=== PATIENT | male | born 1995 | race Caucasian/White ===

== ENCOUNTER 2016-06-05 12:33 | Emergency (ER) | payer SELFPAY ==
[2016-06-05 12:39] VITALS: BP 122/70
--- NOTE | 2016-06-05 14:42 | Emergency Department Report ---
HPI - General Chief Complaint: Back Pain/Injury Time Seen by Provider: 06/05/16 14:16 - HPI HPI: Patient is a 21-year-old male who presents complaining of right sided lower back pain that started yesterday. Patient describes pain as throbbing and aching in nature and is located to me to right side. Patient states she took a diclofenac. Yesterday which helped give some minor relief but this morning the pain started. Patient states sudden movement aggravates the pain. She denies any trauma or fall to the back. Patient denies fever/chills/nausea/vomiting/dysuria/testicular scrotal pain/ radiating pain down leg/ ED Past Medical Hx - Social History Smoking Status: Never Smoker Substance Use Type: None - Medications Home Medications: Home Medications Medication Instructions Recorded Confirmed Last Taken Type Ondansetron [Zofran Odt] 4 mg PO Q4H PRN #5 tab.rapdis 11/01/15 Unknown Rx Cyclobenzaprine [Flexeril] 10 mg PO QHS #30 tablet 06/05/16 Unknown Rx Ibuprofen [Motrin] 800 mg PO Q8HR PRN #30 tablet 06/05/16 Unknown Rx ED Review of Systems ROS: Stated complaint: BACK PAIN Other details as noted in HPI Constitutional: denies: chills, fever Eyes: denies: eye pain, eye discharge, vision change ENT: denies: ear pain, throat pain Respiratory: denies: cough, shortness of breath, wheezing Cardiovascular: denies: chest pain, palpitations Endocrine: no symptoms reported Gastrointestinal: denies: abdominal pain, nausea, vomiting, diarrhea, constipation, hematochezia Genitourinary: denies: urgency, dysuria, frequency, hematuria, discharge, testicular pain, testicular mass Musculoskeletal: myalgia. denies: back pain, joint swelling, arthralgia Skin: denies: rash, lesions Neurological: denies: headache, weakness, numbness, paresthesias, confusion, abnormal gait Psychiatric: denies: anxiety, depression Hematological/Lymphatic: denies: easy bleeding, easy bruising Physical Exam - Physical Exam Vital Signs: Vital Signs 06/05/16 12:36 Temperature 98.2 F Pulse Rate 62 Respiratory 18 Rate Blood Pressure 122/70 O2 Sat by Pulse 98 Oximetry Physical Exam: GENERAL: Alert and oriented x3, no apparent distress, Normal Gait, atraumatic. HEAD: Head is normocephalic and a-traumatic. EYES: Extra ocular muscles are intact. Pupils are equal, round, and reactive to light and accommodation. EARS: symetrical, atraumatic, non tender NOSE: Nose symetrical, Nontender,Nares appeared normal. MOUTH:Mouth is well hydrated and without lesions. Tonsils nonerythematous or swollen, Uvula midline, Tongue not elevated. Mucous membranes are moist. Posterior pharynx clear, no exudate or lesions. Patent airways. NECK: Supple. Non edematous, No carotid bruits. No lymphadenopathy or thyromegaly. LUNGS: Symetrical with respiration, No wheezing, no rales or crackles, CTAB. HEART: S1, S2 present, regular rate and rhythm without murmur, no rubs, no gallops. ABDOMEN: No organomegaly was noted,Positive bowel sounds, soft, and non- distended. . Nontender to palpation on all Quadrants, NO CVA tenderness. Tenderness to palpation of the right latissimus dorsi muscles, no C-spine tenderness. EXTREMITIES/MUSCULOSKELETAL: No cyanosis, clubbing, rash, lesions or edema. Full ROM bilaterally. UE/LE Pulses 2+ bilaterally. LE and UE 5+ strength bilaterally. Back: Full range of motion. No C-spine tenderness. Negative straight leg raise bilaterally. Tenderness to palpation of the latissimus dorsi right NEUROLOGIC: No focal Deficit, Cranial nerves II through XII are grossly intact. No loss of sensation, No facial droop, PSYCHIATRIC: Mood is congruent with affect, denies suicidal or homicidal ideations. SKIN: Warm and dry, No lesions, No ulceration or induration present. ED Course Vital Signs 06/05/16 12:36 Temperature 98.2 F Pulse Rate 62 Respiratory 18 Rate Blood Pressure 122/70 O2 Sat by Pulse 98 Oximetry ED Medical Decision Making - Medical Decision Making 21-year-old male presents with lower muscle back strain. Vital signs stable. Patient alert and oriented 3. Patient is in no acute or respiratory distress. Discussed with patient to rest his back and avoid strenuous activity for the next couple of days. Discussed with patient to follow up primary care physician. Discussed the patient and take medication as prescribed. She verbalizes that he understands and will plan to follow up. Critical care attestation.: If time is entered above; I have spent that time in minutes in the direct care of this critically ill patient, excluding procedure time. ED Disposition Clinical Impression: Myalgia, Strain of muscle, fascia and tendon of lower back, initial encounter Right low back pain Qualifiers: Chronicity: acute Sciatica presence: without sciatica Qualified Code(s): M54.5 - Low back pain Disposition: DISCHARGED TO HOME OR SELFCARE Is pt being admited?: No Does the pt Need Aspirin: No Condition: Stable Instructions: Musculoskeletal Pain (ED), Trigger Point Pain (ED), Low Back Strain (ED), Heat Pack Application (ED) Additional Instructions: Take medications as prescribed. Apply heat to affected area 3 times a day. Follow-up with her primary care physician or as referred. If pain worsens or new symptoms arise to return back to ED. Prescriptions: Cyclobenzaprine [Flexeril] 10 mg PO QHS #30 tablet Ibuprofen [Motrin] 800 mg PO Q8HR PRN #30 tablet PRN Reason: Pain Referrals: PRIMARY CARE, [Primary Care Provider] - 3-5 Days [facility] [Outside] - 3-[address] [facility] [Outside] - 3-5 Days [facility] [Outside] - 3-5 Days [facility] [Outside] - 3-5 Days Forms: Work/School Release Form(ED), Accompanied Note Time of Disposition: 14:41
== END 2016-06-05 14:51 | disposition home or self-care (01) ==
LOC: ED 12:33
DX: S39.012A Strain of muscle, fascia and tendon of lower back, initial encounter (principal); M79.1 Myalgia; X58.XXXA Exposure to other specified factors, initial encounter; Y93.9 Activity, unspecified; Y99.9 Unspecified external cause status; Y92.89 Other specified places as the place of occurrence of the external cause
CPT/HCPCS: 99282

== ENCOUNTER 2020-12-16 16:22 | Emergency (ER) | payer OTHER ==
[2020-12-16 17:01] VITALS: BP 138/86
[2020-12-16] MEDS ORDERED: IBUPROFEN 600 MG TAB PO ONE (19:50)
[2020-12-16] MEDS ORDERED: ACETAMINOPHEN 500 MG TAB PO ONE (19:50)
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
== END 2020-12-16 20:55 | disposition home or self-care (01) ==
LOC: ED 16:22
DX: S83.91XA Sprain of unspecified site of right knee, initial encounter (principal); M62.830 Muscle spasm of back; M54.5 Low back pain; Z79.899 Other long term (current) drug therapy; V89.2XXA Person injured in unspecified motor-vehicle accident, traffic, initial encounter; Y93.89 Activity, other specified; Y92.488 Other paved roadways as the place of occurrence of the external cause; Y99.8 Other external cause status
CPT/HCPCS: 99283